=== PATIENT | male | born 1990 | race Caucasian/White ===

== ENCOUNTER 2017-11-17 13:03 | Emergency (ER) | payer OTHER ==
[~2017-11-17] VITALS: Ht 170.2 cm; Wt 54.5 kg
[~2017-11-17 13:03] MED LIST: ATOM40 PO
[2017-11-17 13:12] VITALS: BP 123/67; PULSE 79; RESP 15; TEMP 98.1; O2SAT 100
[2017-11-17] MEDS ORDERED: diphenhydrAMINE HCL 25 MG CAP PO ONE (13:30)
[2017-11-17] MEDS ORDERED: PRED5PAK PO (13:36)
--- NOTE | 2017-11-17 13:36 | PD ---
HPI Chief Complaint: Skin Problem Time Seen by Provider: 13:21 Travel History International Travel<30 days: No Contact w/Intl Traveler<30days: No Traveled to known affect area: No History of Present Illness HPI 26-year-old male presents emergency department with mild rash to both upper arms and trunk which was noticed today while he was working here at [employer]. Patient does not feel itchy, or have any constitutional symptoms such as sore throat, swelling of the throat, cough, wheezing, or other signs of allergy. Patient denies any new exposures of food or soaps or detergents. He states no new medications. Patient denies being exposed to animals, or history of allergies in the past. Patient is allergic to penicillin. [employer] Past Medical History Diminished Hearing: No Social History Alcohol Use: Yes (OCCASSIONALLY) Tobacco Use: Yes (05/30 PPD) Substance Use: No Allergies-Medications (Allergen,Severity, Reaction): Coded Allergies: penicillin G (Unverified Adverse Reaction, Intermediate, 06/06/17) Reported Meds & Prescriptions Reported Meds & Active Scripts Active Strattera (Atomoxetine HCl) 40 Mg Cap 40 Mg PO DAILY Review of Systems Except as stated in HPI: all other systems reviewed are Neg General / Constitutional: No: Fever Eyes: No: Visual changes HENT: No: Headaches Cardiovascular: No: Chest Pain or Discomfort Respiratory: No: Shortness of Breath Gastrointestinal: No: Abdominal Pain Genitourinary: No: Dysuria Musculoskeletal: No: Pain Skin: Positive Rash Neurologic: No: Weakness Psychiatric: No: Depression Endocrine: No: Polydipsia Hematologic/Lymphatic: No: Easy Bruising Physical Exam Narrative GENERAL: Patient appears in no obvious distress. SKIN: Warm and dry. Normal color. Normal turgor. Patient has a very mild erythematous flat lacy rash to the forearms, and a couple areas on the trunk, consistent with nonspecific rash. There is no sign of hives or eczema. HEAD: Atraumatic. Normocephalic. EYES: Pupils equal and round. No scleral icterus. No injection or drainage. ENT: No nasal bleeding or discharge. Mucous membranes pink and moist. Pharynx is clear. Airways patent. No swelling is noted. NECK: Trachea midline. No JVD. Supple and nontender. CARDIOVASCULAR: Regular rate and rhythm. RESPIRATORY: No accessory muscle use. Clear to auscultation. Breath sounds equal bilaterally. GASTROINTESTINAL: Abdomen soft, non-tender, nondistended. Hepatic and splenic margins not palpable. MUSCULOSKELETAL: Extremities without clubbing, cyanosis, or edema. No obvious deformities. NEUROLOGICAL: Awake and alert. No obvious cranial nerve deficits. Motor grossly within normal limits. Five out of 5 muscle strength in the arms and legs. Normal speech. PSYCHIATRIC: Appropriate mood and affect; insight and judgment normal. Data Data Last Documented VS Vital Signs Date Time Temp Pulse Resp B/P (MAP) Pulse Ox O2 Delivery O2 Flow Rate FiO2 11/17/17 13:12 98.1 79 15 123/67 (85) 100 Orders Orders Diphenhydramine (Benadryl) (11/17/17 13:30) [facility] Medical Decision Making Medical Screen Exam Complete: Yes Emergency Medical Condition: Yes Differential Diagnosis Rash. Atopic dermatitis. Allergic reaction. Narrative Course Patient is felt to be medically stable. Patient is given Benadryl 25 mg p.o. now Patient should continue Benadryl every 6 hours as needed, he states he will take [id number]. Patient is given a prescription for a prednisone Dosepak if symptoms worsen. He should not take it if not necessary. Patient is understanding and will return if symptoms worsen as well. Diagnosis Primary Impression: Rash and nonspecific skin eruption Patient Instructions: Acute Rash (ED), General Instructions Additional Instructions: Patient is given Benadryl 25 mg p.o. now Patient should continue Benadryl every 6 hours as needed, he states he will take [id number]. Patient is given a prescription for a prednisone Dosepak if symptoms worsen. He should not take it if not necessary. Patient is understanding and will return if symptoms worsen as well. Med/Other Pt SpecificInfo: Prescription(s) given Disposition: 01 DISCHARGE HOME Condition: Stable Zaid Mills Nov 17, 2017 13:35
== END 2017-11-17 13:46 | disposition home or self-care (01) ==
LOC: NEPD 13:03
DX: R21 Rash and other nonspecific skin eruption (principal); F17.200 Nicotine dependence, unspecified, uncomplicated
CPT/HCPCS: 99283